=== PATIENT | female | born 1970 | race Caucasian/White ===

== ENCOUNTER 2018-07-28 17:36 | Emergency (ER) | payer OTHER ==
[~2018-07-28] VITALS: Ht 167.6 cm; Wt 82.0 kg
[2018-07-28 17:50] VITALS: Ht 167.6 cm; Wt 82.0 kg
[2018-07-28] MEDS ORDERED: SULF1TAB31 PO (18:57)
--- NOTE | 2018-07-28 18:57 | ERD ---
ER Documentation Chief Complaint Chief Complaint Sent from for evaluation abscess under the Arm HPI 47-year-old female with a history of breast cancer status post lumpectomy and axillary lymph node resection by Dr. Ny presenting with pain in her axillary area. She was seen a few days ago at an outside hospital and had 30 mL of serosanguineous fluid drained. The fluid has started to recollect. She went back to the hospital and they did not want to do any further aspiration as they did not want to introduce infection. Patient is complaining of 6 out of 10 aching pain, worse with touching the area. No fevers, chills, nausea, vomiting. No shortness of breath. ROS All systems reviewed and are negative except as per history of present illness. Medications Home Meds Active Scripts Sulfamethoxazole/Trimethoprim* (Bactrim Ds* Tablet) 1 Each Tablet, 1 TAB PO BID, #14 TAB Prov:CELIO HOUSE MD 07/28/18 Allergies Allergies: Coded Allergies: No Known Allergy (Unverified , 07/28/18) PMhx/Soc History of Surgery: Yes (L PARTIAL LUMPECTOMY ) Hx Alcohol Use: No Hx Substance Use: No Hx Tobacco Use: No Smoking Status: Never smoker Physical Exam Vitals Vital Signs Date Temp Pulse Resp B/P (MAP) Pulse Ox O2 O2 Flow FiO2 Time Delivery Rate 07/28/18 98.5 84 16 140/93 100 Room Air 19:32 (109) 07/28/18 99.5 95 20 137/85 98 17:50 (102) Physical Exam Const: No acute distress Head: Atraumatic Eyes: Normal Conjunctiva ENT: Normal External Ears, Nose and Mouth. Neck: Full range of motion. No meningismus. Chest: Left axillary fluctuant area with minimal surrounding erythema and tenderness. No active drainage. No masses. Breasts normal bilaterally. Resp: Clear to auscultation bilaterally Cardio: Regular rate and rhythm, no murmurs Abd: Soft, non tender, non distended. Normal bowel sounds Skin: No petechiae or rashes Ext: No cyanosis, or edema Neur: Awake and alert Psych: Normal Mood and Affect Result Diagram: 07/28/18 1841 07/28/18 1841 Results 24 hrs Laboratory Tests Test 07/28/18 18:41 White Blood Count 11.4 10^3/ul Red Blood Count 4.13 10^6/ul Hemoglobin 11.5 g/dl Hematocrit 35.6 % Mean Corpuscular Volume 86.2 fl Mean Corpuscular Hemoglobin 27.8 pg Mean Corpuscular Hemoglobin Concent 32.3 g/dl Red Cell Distribution Width 12.0 % Platelet Count 343 10^3/UL Mean Platelet Volume 9.5 fl Immature Granulocytes % 0.300 % Neutrophils % 72.0 % Lymphocytes % 15.8 % Monocytes % 6.4 % Eosinophils % 5.1 % Basophils % 0.4 % Nucleated Red Blood Cells % 0.0 /100WBC Immature Granulocytes # 0.030 10^3/ul Neutrophils # 8.2 10^3/ul Lymphocytes # 1.8 10^3/ul Monocytes # 0.7 10^3/ul Eosinophils # 0.6 10^3/ul Basophils # 0.1 10^3/ul Nucleated Red Blood Cells # 0.0 10^3/ul Prothrombin Time 12.3 Sec Prothrombin Time Ratio 1.0 INR International Normalized Ratio 0.90 Activated Partial Thromboplast Time 33.2 Sec Sodium Level 141 mmol/L Potassium Level 3.7 mmol/L Chloride Level 103 mmol/L Carbon Dioxide Level 27 mmol/L Anion Gap 11 Blood Urea Nitrogen 7 mg/dl Creatinine 0.59 mg/dl Est Glomerular Filtrat Rate mL/min > 60 mL/min Glucose Level 101 mg/dl Calcium Level 9.0 mg/dl Current Medications Medications Dose Sig/Ary Start Time Status Last (Trade) Ordered Route PRN Stop Time Admin Dose Reason Admin 1 tab ONCE ONCE 07/28/18 DC 07/28/18 Acetaminophen PO 19:00 19:02 / 07/28/18 19:01 Hydrocodone Bitart ([place] (5/325)) Procedures/MDM EMERGENT LABS AND DIAGNOSTIC STUDIES: Lab Results above were reviewed and interpreted by me. CBC: no anemia or evidence of infection BMP: [no e/o clinically significant electrolyte abnormality severe acidosis, alkalosis, renal failure, diabetic ketoacidosis] Initial Nursing notes reviewed. Previous Medical Records requested via the Electronic Health Record. EMERGENCY DEPARTMENT COURSE / MEDICAL DECISION MAKING: Patient is presenting with a left axillary seroma with questionable infection. Vitals are unremarkable. I spoke with her surgeon, Dr. Ny, who came to the bedside to evaluate the patient. At this time he thinks the seroma is small and would not like any drainage. He would like her to take Bactrim for 7 days and follow-up in his clinic. Patient feels comfortable with this plan. Return precautions given. Patient's blood pressure was elevated (>120/80) but appears stable without evidence of hypertensive emergency or urgency. The patient was counseled about the risks of hypertension and urged to pursue outpatient monitoring and therapy within a week with their primary care physician. Departure Diagnosis: Primary Impression: Seroma Condition: Stable Patient Instructions: Seroma, Postsurgical Referrals: [facility] [place] MD, NELLIE R. MD July 28, 2018 18:57
[2018-07-28] MEDS ORDERED: HYDROCODONE/APAP (5/325) TAB PO ONE (19:00)
--- NOTE | 2018-07-28 19:06 | CONS ---
Assessment/Plan Assessment/Plan Hospital Course (Demo Recall) 1. Right axillary fluid collection, sp recent drainage -ok to dc home with abx (bactrim) -tight annie wrap around breast/axilla area -to follow in office next week for f/u 2. Axillary pain: -pain mgt -ice pack to area 3. Leukocytosis: -as above 4. Obesity bmi 29 -diet and exercise optimization -encourage weight loss Thank you. Patient seen and examined in collaboration with Dr. Beck Rajput. Consultation Date/Type/Reason Admit Date/Time Date of Consultation: July 28, 2018 Type of Consult surgical Reason for Consultation right axillary fluid collection, recent lumpectomy Requesting Provider: CELIO HOUSE MD Date/Time of Note DATE: 07/28/18 TIME: 18:52 Hx of Present Illness Mahsa Herndon is a 47 yo woman with recent right axillary lumpectomy for right breast cancer performed by our service who presented with complaints of right axillary pain. Notably, she recently visited ED where they drained fluid from he r right axilla. She again presents with pain, however pain and swelling have improved. She denies fevers, sob, congested cough, chest pain, n/v/d/dysuria, sz, rash. General surgery was asked to evaluate. 12 point ros was performed and is negative except as stated in hpi. Past Medical History right breast cancer sp lumpectomy obesity Medications Current Medications Acetaminophen/ Hydrocodone Bitart ([place] (5/325)) 1 tab ONCE ONCE PO ; Start 07/28/18 at 19:00; Stop 07/28/18 at 19:01 Allergies: Coded Allergies: No Known Allergy (Unverified , 07/28/18) Past Surgical History as above Family History Significant Family History: no pertinent family hx Exam/Review of Systems Exam Vitals Vital Signs Date Temp Pulse Resp B/P (MAP) Pulse Ox O2 O2 Flow FiO2 Time Delivery Rate 07/28/18 99.5 95 20 137/85 98 17:50 (102) Constitutional: alert, oriented, well developed Psych: nl mood/affect, anxiety (min) Head: normocephalic, atraumatic Eyes: nl conjunctiva, nl lids, nl sclera ENMT: nl external ears & nose, nl lips & teeth, mucosa pink and moist Neck: supple, non-tender; No jvd Respiratory: normal air movement; No congested cough Cardiovascular: regular rate and rhythm; No edema Gastrointestinal: soft, non-tender Genitourinary - Female: nl external genitalia Musculoskeletal: nl extremities to inspection, nl gait and stance Extremities: normal pulses Neurological: nl mental status, nl speech, nl strength Skin: other (right axillay with min induration and small fluctuant area, min erythema); No rash or lesions Results Result Diagram: 07/28/18 1841 Results 24hrs Laboratory Tests Test 07/28/18 18:41 White Blood Count 11.4 H Red Blood Count 4.13 L Hemoglobin 11.5 L Hematocrit 35.6 L Mean Corpuscular Volume 86.2 Mean Corpuscular Hemoglobin 27.8 L Mean Corpuscular Hemoglobin Concent 32.3 Red Cell Distribution Width 12.0 Platelet Count 343 Mean Platelet Volume 9.5 Immature Granulocytes % 0.300 Neutrophils % 72.0 Lymphocytes % 15.8 Monocytes % 6.4 Eosinophils % 5.1 Basophils % 0.4 Nucleated Red Blood Cells % 0.0 Immature Granulocytes # 0.030 Neutrophils # 8.2 H Lymphocytes # 1.8 Monocytes # 0.7 Eosinophils # 0.6 H Basophils # 0.1 Nucleated Red Blood Cells # 0.0 Medications Medication Current Medications Acetaminophen/ Hydrocodone Bitart ([place] (5/325)) 1 tab ONCE ONCE PO ; Start 07/28/18 at 19:00; Stop 07/28/18 at 19:01 ISHMAEL ZAMARRIPA NP July 28, 2018 19:02
[2018-07-28 19:32] VITALS: BP 140/93; PULSE 84; RESP 16
== END 2018-07-28 19:30 | disposition home or self-care (01) ==
LOC: E/R 17:36
DX: L76.34 Postprocedural seroma of skin and subcutaneous tissue following other procedure (principal); Z85.3 Personal history of malignant neoplasm of breast
CPT/HCPCS: 36415; 80048; 85025; 85610; 85730; Z7502; Z7610; 99283